=== PATIENT | male | born 1990 | race Caucasian/White ===

== ENCOUNTER → 2020-09-04 | Outpatient (CLI) | payer SELFPAY | LOC: M LABSMTC 14:00 | PROVIDERS: ATTEND Pediatrics | DX: Z20.828 Contact with and (suspected) exposure to other viral communicable diseases (principal) ==

== ENCOUNTER 2023-05-16 13:55 | Emergency (ER) | payer OTHER, BC ==
[~2023-05-16] VITALS: Ht 170.2 cm; Wt 124.7 kg
[2023-05-16 13:56] VITALS: BP 149/83; TEMP 98.6; O2SAT 96
[2023-05-16] MEDS ORDERED: BOOSTRIX VACCINE (TETANUS/DIPHTH/ACEL. PERTUSSIS) 0.5ML SYR IM ONE (15:50)
[2023-05-16] MEDS ORDERED: LIDOCAINE 2% MDV 20ML VIAL SC ONE (16:25)
== END 2023-05-16 16:55 | disposition home or self-care (01) ==
LOC: M ED 13:55
DX: S61.111A Laceration without foreign body of right thumb with damage to nail, initial encounter (principal); S61.101A Unspecified open wound of right thumb with damage to nail, initial encounter; W23.0XXA Caught, crushed, jammed, or pinched between moving objects, initial encounter; Y99.0 Civilian activity done for income or pay; F17.220 Nicotine dependence, chewing tobacco, uncomplicated